=== PATIENT | female | born 1950 | race Caucasian/White ===

== ENCOUNTER 2018-01-13 06:04 | Day surgery (SDC) | payer BC, MEDICARE ==
[2018-01-13] MEDS ORDERED: NA HYALURONATE/CHONDROITIN 0.5 ML SYG (06:48)
[2018-01-13] MEDS ORDERED: EPINEPHrine 1 MG INJ (06:48)
[2018-01-13] MEDS ORDERED: TOBRAMYCIN 0.3% 3.5 GM OPH OINT (06:48)
[2018-01-13] MEDS ORDERED: TETRACAINE 0.5% 4 ML OPH (06:48)
[2018-01-13] MEDS: MOXIFLOXACIN 0.5% 3 ML OPH OPER (06:55)
[2018-01-13] MEDS: TETRACAINE 0.5% 4 ML OPH OPER ×2 (06:55→08:11)
[2018-01-13] MEDS: TROPICAMIDE 1% 3 ML OPH OPER (06:55)
[2018-01-13] MEDS: PHENYLephrine 10% 5 ML OPH OPER (06:55)
[2018-01-13] MEDS: BROMFENAC SODIUM 1.7 ML OPH DROP OPER (06:56)
[2018-01-13] MEDS: CYCLOPENTOLATE 2% 2 ML OPH OPER (06:56)
[2018-01-13] MEDS: LACTATED RINGER'S 1,000 ML IV (06:57)
[2018-01-13] MEDS: LIDOCAINE 3.5% GEL TUBE OPER (06:57)
[2018-01-13] MEDS ORDERED: CEFAZOLIN 1 GM INJ (07:40)
[2018-01-13] MEDS ORDERED: MIDAZOLAM 1 MG/ML 2 ML INJ (07:40)
[2018-01-13] MEDS ORDERED: FENTAnyl 50 MCG/ML VIAL ×2 (07:40→08:18)
[2018-01-13] MEDS: LIDOCAINE 1%/EPI 30 ML INJ (08:11)
[2018-01-13] MEDS: CARBACHOL 0.01% 1.5 ML OPH INJ (08:11)
[2018-01-13] MEDS ORDERED: ONDANSETRON 4 MG INJ IV (08:30)
[2018-01-13] MEDS ORDERED: HYDROmorphONE (0.2 MG/ML) 10ML SYG IV (08:30)
[2018-01-13] MEDS ORDERED: TRYPAN BLUE 0.5 ML SYG IO (08:30)
[2018-01-13] MEDS ORDERED: FENTAnyl 50 MCG/ML VIAL IV (08:30)
[2018-01-13] MEDS ORDERED: OXYCODONE/ACETAMINOPHEN (5/325) TAB PO (08:30)
[2018-01-13] MEDS ORDERED: DIPHENHYDRAMINE 50 MG INJ IV (08:30)
[2018-01-13] MEDS ORDERED: PROCHLORPERAZINE 10 MG INJ IV (08:30)
[2018-01-13] MEDS ORDERED: MEPERIDINE 25 MG INJ IV (08:30)
[2018-01-13] MEDS ORDERED: KETOROLAC 15 MG INJ IV (08:30)
[2018-01-13] MEDS ORDERED: PROPOFOL 20 ML (08:32)
[2018-01-13] MEDS ORDERED: HYDROmorphONE 2 MG/ML SYG (08:47)
== END 2018-01-13 10:44 | disposition home or self-care (01) ==
LOC: SDS 06:04
DX: H25.9 Unspecified age-related cataract (principal); E78.5 Hyperlipidemia, unspecified; I10 Essential (primary) hypertension
CPT/HCPCS: 66984